=== PATIENT | male | born 1965 | race Caucasian/White ===

== ENCOUNTER 2016-07-02 17:29 | Emergency (ER) | payer OTHER ==
[2016-07-02] MEDS ORDERED: NS 0.9% 1000 ML* 2,000 ML IV ONE (20:30)
[2016-07-02] MEDS ORDERED: Ciprofloxacin 400MG IVPREMIX(* 400 MG/200 ML BAG IVPB ONE (21:09)
[2016-07-02 21:47] LABS: Hematocrit 47 % (42-52); Hemoglobin 15.7 g/dl (14.0-18.0); Mean Corpuscular HGB Conc 34 g/dl (31-36); Mean Corpuscular Hemoglobin 32 pg (27-31); Mean Corpuscular Volume 95 fL (80-94); Mean Platelet Volume 9 um3 (7.4-10.4); Red Blood Count 4.93 10^6/ul (4.0-5.4); Red Cell Distribution Width 15 % (10.5-15); White Blood Count 9.9 10^3/ul (3.5-10.8)
[2016-07-02] MEDS ORDERED: Ondansetron INJ* 2 MG/ML VIAL IV ONE (21:57)
[2016-07-02] MEDS ORDERED: Morphine INJ* 4 MG/ML 1 ML SYRINGE IV ONE (21:57)
[2016-07-02 22:02] LABS: Albumin 4.6 g/dL (3.2-5.2); BUN/Creatinine Ratio 11.4 (8-20); Calcium 9.9 mg/dL (8.6-10.3); EGFR African American 95.8 (>60); EGFR Non-African American 74.5 (>60); Globulin 3.7 g/dL (2-4); Potassium 3.6 mmol/L (3.5-5.0); Total Bilirubin 0.8 mg/dL (0.2-1.0); Total Protein 8.3 g/dL (6.4-8.9)
[2016-07-02] MEDS: metroNIDAZOLE IV 500 MG/100ML* 500 MG/100 ML BAG IVPB ONE ×2 (22:07→23:42)
[2016-07-02] MEDS ORDERED: Iohexol 300* (CONTRAST) 10 ML SDV IV ONE (22:27)
[2016-07-02 22:30] LABS: Urine Bilirubin Negative (Negative); Urine Glucose Negative (Negative); Urine Nitrite Negative (Negative)
[2016-07-02] MEDS ORDERED: HYDROmorphone* 1 MG/ML 1 ML SYR IV SLOW PU ONE (23:31)
[2016-07-03] MEDS ORDERED: oxyCODONE/Acetamin 5/325 MG* TAB PO ONE (00:10)
[2016-07-03 01:18] VITALS: BP 135/63
--- NOTE | 2016-07-03 07:48 | RAD ---
Indication: Left lower quadrant pain. Contrast: Administered 100.0 ml of OMNIPAQUE 300 mg/ml CT of the abdomen and pelvis was performed after oral and IV contrast administration. Coronal and sagittal reconstructed images were obtained. Lung bases demonstrate no pleural fluid, nodules or masses. Heart is of normal size without evidence of pericardial effusion. Liver is normal in size. It is diffusely decreased in density consistent with hepatic steatosis. The gallbladder demonstrates no calcified gallstones. No pericholecystic fluid or wall thickening is noted. The common duct is not dilated. The pancreas demonstrates no mass or pancreatic duct dilatation. The spleen is normal in size. No adrenal masses are noted. The kidneys demonstrate symmetric nephrograms without focal masses. No hydronephrosis is noted. Aorta and inferior vena cava are unremarkable. No a residual dilatation is noted. CT of the pelvis demonstrates wall thickening of the sigmoid colon with pericolonic infiltration of fat. This is at the level just adjacent to the urinary bladder. Extensive diverticulosis is noted. There is likely diverticulitis of the sigmoid colon noted. No peridiverticular abscess is present. The appendix is visualized and is normal. IMPRESSION: FINDINGS CONSISTENT WITH DIVERTICULITIS OF THE SIGMOID COLON. NO PERIDIVERTICULAR ABSCESS IS NOTED. HEPATIC STEATOSIS IS PRESENT.
--- NOTE | 2016-07-04 09:26 | ED ---
Damien Mirza Aidan, scribed for Shane Johnson MD on 07/02/16 at 2131 . Abdominal Pain/Male - HPI Summary HPI Summary: 51 y/o male presents to the ED with a complaint of intermittent episodes of acute, moderate abdominal pain that occurs when the patient has gas or when he makes BMs. Pain began this morning at 0300. He believed that this may be a flare up of diverticulitis. Associated symptoms include some lower back pain during BMs. Hx of 2 episodes of diverticulitis. His first episode of diverticulitis was perforated. Pt denies any fever, sweats, or chills. - History of Current Complaint Chief Complaint: EDAbdPain Stated Complaint: ABD PAIN Time Seen by Provider: 07/02/16 20:17 Hx Obtained From: Patient Onset/Duration: Sudden Onset, Lasting Hours, Still Present Timing: Intermittent, Lasting Hours Severity Initially: Moderate Severity Currently: Mild Pain Intensity: 1 Pain Scale Used: 0-10 Numeric Location: Discrete At: LLQ Radiates to: Other - he experiences some lower back pain during BMs, however, the abdominal pain does not radiate. Character: Sharp Aggravating Factor(s): Other: - passing gas causes abdominal pain and making BMs produces lower back pain Alleviating Factor(s): Other: - unknown Associated Signs And Symptoms: Positive: Back Pain - lower, Other - increased gas - Risk Factors Cardiac Risk Factors: Smoking - former smoker - Allergies/Home Medications Allergies/Adverse Reactions: Allergies Allergy/AdvReac Type Severity Reaction Status Date / Time No Known Allergies Allergy Verified 07/02/16 17:31 PMH/Surg Hx/FS Hx/Imm Hx GI History: Reports: Hx Diverticulosis, Hx Gastroesophageal Reflux Disease, Hx Hiatal Hernia Musculoskeletal History: Reports: Hx Arthritis - Cancer History Cancer Type, Location and Year: BASAL CELL CA, LT.CHEEK,REMOVED NO OTHER TREATMENT-2010 - Surgical History Surgery Procedure, Year, and Place: HIATAL HERNIA SURGERY Infectious Disease History: No Infectious Disease History: Denies: Traveled Outside the [place] in Last 30 Days - Family History Known Family History: Positive: Hypertension - Social History Occupation: Employed Full-time Lives: With Family Alcohol Use: Daily Substance Use Type: Reports: None Smoking Status (MU): Former Smoker Type: Cigarettes Length of Time of Smoking/Using Tobacco: 28 years Have You Smoked in the Last Year: No Review of Systems Negative: Fever, Chills, Fatigue, Skin Diaphoresis Negative: Photophobia, Blurred Vision, Diplopia, Drainage, Erythema Negative: Epistaxis, Dental Pain, Sore Throat, Ear Ache, Nasal Discharge Negative: Palpitations, Chest Pain Negative: Shortness Of Breath, Cough Gastrointestinal: Other - increased gas Positive: Abdominal Pain. Negative: Vomiting, Diarrhea, Nausea Negative: burning, dysuria, discharge, frequency, flank pain, hematuria, incontinence, urgency Positive: Arthralgia - lower back pain during BMs. Negative: Myalgia, Decreased ROM, Edema Negative: Rash, Bruising Negative: Headache, Weakness, Paresthesia, Numbness, Syncope, Slurred Speech Negative: Anxious, Depressed All Other Systems Reviewed And Are Negative: Yes Physical Exam - Summary Physical Exam Summary: Constitutional: Well-developed, Well-nourished, Alert. (-) Distressed Skin: Warm, Dry HENT: Normocephalic; Atraumatic Eyes: Conjunctiva normal Neck: Musculoskeletal ROM normal neck. (-) JVD, (-) Stridor, (-) Tracheal deviation Cardio: Rhythm regular, rate normal, Heart sounds normal; Intact distal pulses; The pedal pulses are 2+ and symmetric. Radial pulses are 2+ and symmetric. (-) Murmur Pulmonary/Chest wall: Effort normal. (-) Respiratory distress, (-) Wheezes, (-) Rales Abd: Soft, LLQ PAIN, NO PALPABLE HERNIAS, (-) Distension, (-) Guarding, (-) Rebound Musculoskeletal: (-) Edema Lymph: (-) Cervical adenopathy Neuro: Alert, Oriented x3 Psych: Mood and affect Normal Vital Signs On Initial Exam: Initial Vitals Temp Pulse Resp BP Pulse Ox 97.3 F 104 18 146/95 98 07/02/16 17:31 07/02/16 17:31 07/02/16 17:31 07/02/16 17:31 07/02/16 17:31 Diagnostics - Vital Signs Vital Signs Temp Pulse Resp BP Pulse Ox 07/02/16 19:04 98.8 F 103 18 145/93 98 07/02/16 17:31 97.3 F 104 18 146/95 98 - Laboratory Result Diagrams: 07/02/16 21:35 07/02/16 21:35 Lab Statement: Any lab studies that have been ordered have been reviewed, and results considered in the medical decision making process. - CT ABD/PEL CT CT Interpretation: Positive (See Comments) - IMPRESSION: MILD UNCOMPLICATED DISTAL SIGMOID DIVERTICULITIS Re-Evaluation - Re-Evaluation First Eval Re-Evaluation Time: 00:00 - The patient is feeling better. He and his are agreeable for discharge and understand to come back for fever or worsening pain. Change: Improved Abdominal Pain Fem Course/Dx - Diagnoses Provider Diagnoses: Acute diverticulitis Discharge - Discharge Plan Condition: Stable Disposition: HOME Discharge Disposition Comment: Please follow up with your primary care physician within 2 days. Prescriptions: Ciprofloxacin TAB* [Cipro 500 MG TAB*] 500 mg PO BID #42 tab Metronidazole [Flagyl 500 MG TAB] 500 mg PO BID #42 tab oxyCODONE/Acetamin 5/325 MG* [Percocet 5/325 TAB*] 1 tab PO Q6H PRN #12 tab MDD 4 PRN Reason: Pain - Moderate To Severe Patient Education Materials: Diverticulitis (ED) Referrals: Jerel Gannon MD [Primary Care Provider] - The documentation as recorded by the Damien lenz Aidan accurately reflects the service I personally performed and the decisions made by , Shane Johnson MD.
== END 2016-07-03 01:14 | disposition home or self-care (01) ==
LOC: ED 17:29
DX: K57.92 Diverticulitis of intestine, part unspecified, without perforation or abscess without bleeding (principal); R10.32 Left lower quadrant pain; M54.5 Low back pain; Z87.891 Personal history of nicotine dependence
CPT/HCPCS: 36415; 74177; 80053; 81003; 83605; 85025; 85610; 85730; 96374; 99283; A9270-GY; J0744; J1170; J2270; J2405; Q9967

== ENCOUNTER 2016-07-05 15:05 | Emergency (ER) | payer OTHER ==
[2016-07-05 15:10] VITALS: BP 140/88
--- NOTE | 2016-07-05 16:54 | ED ---
Back Pain - HPI Summary HPI Summary: Patient arrives after sustaining a mechanical fall on the stairs this morning. He was immediately able to ambulate. Denies hitting head or LOC. States pain is located in his left buttocks and is a "hard lump." He denies blood thinners or health problems. Patient denies back pain, leg pain or pain that radiates. - History of Current Complaint Chief Complaint: EDBackInjuryPain Stated Complaint: FALL/BACK PAIN Time Seen by Provider: 07/05/16 15:45 Hx Obtained From: Patient Onset/Duration: Sudden Onset Onset/Duration: Started Hours Ago Timing: Constant Back Pain Location: Is Discrete @ - left buttocks Severity Initially: Moderate Severity Currently: Moderate Pain Intensity: 7 Pain Scale Used: 0-10 Numeric Character: Aching Aggravating Symptom(s): Walking Alleviating Symptom(s): Position Associated Signs And Symptoms: Positive: Swelling, Redness, Bruising - Risk Factors AAA Risk Factors: Negative TAD Risk Factors: Negative Cauda Equina Risk Factors: Negative - Allergies/Home Medications Allergies/Adverse Reactions: Allergies Allergy/AdvReac Type Severity Reaction Status Date / Time No Known Allergies Allergy Verified 07/05/16 15:07 PMH/Surg Hx/FS Hx/Imm Hx Previously Healthy: Yes Endocrine/Hematology History: Denies: Hx Diabetes Cardiovascular History: Denies: Hx Hypertension GI History: Reports: Hx Diverticulosis, Hx Gastroesophageal Reflux Disease, Hx Hiatal Hernia History: Denies: Hx Renal Disease Musculoskeletal History: Reports: Hx Arthritis - Cancer History Cancer Type, Location and Year: BASAL CELL CA, LT.CHEEK,REMOVED NO OTHER TREATMENT-2010 - Surgical History Surgery Procedure, Year, and Place: HIATAL HERNIA SURGERY Infectious Disease History: No Infectious Disease History: Denies: Traveled Outside the [place] in Last 30 Days - Family History Known Family History: Positive: Hypertension - Social History Occupation: Employed Full-time Lives: With Family Alcohol Use: Daily Hx Substance Use: No Substance Use Type: Reports: None Smoking Status (MU): Former Smoker Type: Cigarettes Length of Time of Smoking/Using Tobacco: 28 years Have You Smoked in the Last Year: No Review of Systems Constitutional: Negative Cardiovascular: Negative Respiratory: Negative Positive: no symptoms reported, see HPI Positive: Myalgia - left buttocks pain Skin: Negative Neurological: Negative Psychological: Normal All Other Systems Reviewed And Are Negative: Yes Physical Exam Triage Information Reviewed: Yes Vital Signs On Initial Exam: Initial Vitals Temp Pulse Resp BP Pulse Ox 97.4 F 102 16 140/88 100 07/05/16 15:07 07/05/16 15:07 07/05/16 15:07 07/05/16 15:07 07/05/16 15:07 Vital Signs Reviewed: Yes Appearance: Positive: Well-Appearing, Well-Nourished Skin: Positive: Warm, Skin Color Reflects Adequate Perfusion, Other - erythema, indurated, hematoma over left buttocks measuring 8cm by 10cm Eyes: Positive: Normal, Conjunctiva Clear Neck: Positive: Supple, Nontender Respiratory/Lung Sounds: Positive: Clear to Auscultation, Breath Sounds Present Cardiovascular: Positive: Normal Musculoskeletal: Positive: Normal, Strength/ROM Intact, Other - ambulating OK Neurological: Positive: Sensory/Motor Intact, Speech Normal Psychiatric: Positive: Normal Diagnostics - Vital Signs Vital Signs Temp Pulse Resp BP Pulse Ox 07/05/16 15:07 97.4 F 102 16 140/88 100 - Laboratory Lab Statement: Any lab studies that have been ordered have been reviewed, and results considered in the medical decision making process. Back Pain Course/Dx - Course Course Of Treatment: Evaluated for fracture. Patient ambulating OK. Large hematoma to left buttocks which does not radiate. Patient notes to 5/10 pain while sitting. Denies back pain. Denies LOC or hitting head. Patient takes oxycodone currently for diverticulitis and will continue as needed. Patient knows not to drive on this medication. Understands with discharge and OK to plan. - Diagnoses Differential Diagnosis/HQI/PQRI: Positive: Fracture, Herniated Disc, Strain, Sprain Provider Diagnoses: Traumatic hematoma of buttock Discharge - Discharge Plan Condition: Stable Disposition: HOME Patient Education Materials: Hematoma (ED) Referrals: Jerel Gannon MD [Primary Care Provider] - Additional Instructions: Follow up with PCP Oxycodone for pain Ibuprofen 600mg four times daily for inflammation. bruising will become worse over the next week or so warm heat pads to the area starting tomorrow tonight you may use ice.
== END 2016-07-05 16:22 | disposition home or self-care (01) ==
LOC: ED 15:05
DX: S30.0XXA Contusion of lower back and pelvis, initial encounter (principal); Z87.891 Personal history of nicotine dependence; W19.XXXA Unspecified fall, initial encounter; Y93.9 Activity, unspecified; Y92.9 Unspecified place or not applicable; Y99.9 Unspecified external cause status
CPT/HCPCS: 99281